=== PATIENT | female | born 1935 | race Caucasian/White ===

== ENCOUNTER 2018-10-02 05:00 | Inpatient (IN) | payer OTHER, MEDICAID ==
[~2018-10-02] VITALS: Ht 154.9 cm; Wt 82.2 kg
[~2018-10-02 05:00] MED LIST: ACTOS30 PO; ASPIR 8181 MG PO; ASPIRIN ADULT L81 M1 PO; BG MC; CARVEDILOL12.5 M1 PO; CEL100 PO; COLACE100 MG PO; CRESTOR10 M1 PO; CRESTOR10 MG PO; FEROSUL325 MG PO; FOLIC ACID1 MG PO; FUROSEMI PO; FUROSEMIDE20 MG PO; HEP5I SC; HUMULIN R100 U/1 M1 SC; JANUMET1 TAB PO; KLOR-CON M1515 MEQ PO; LACTULOSE10 GM/152 PO; LASIX20 MG PO; LEVEMIR100 U/M1 SC; LOSARTAN POTAS100 MG PO; LOSARTAN POTASS1 TA6 PO; LYRICA100 M1 PO; LYRICA50 MG PO; MACROBID100 MG PO; METFORMIN1000 MG PO; METOPROLOL25 MG PO; MIR125 PO; MIRAPEX0.25 MG PO; NAPROSYN500 MG PO; NAPROXEN500 M2 PO; NOVI SQ; TRAMADOL HCL50 MG PO; TRAMADOL50 MG PO; [UNRECOGNIZED DRUG - OTHER] SQ
[2018-10-02 05:05] VITALS: Ht 154.9 cm; Wt 82.2 kg
[2018-10-02 06:51] LABS: BASOPHIL % 0.4 % (0-2); PLATELET COUNT 273 x10^3mcL (130-400); RED CELL DISTRIBUTION WIDTH 12.5 % (11.5-14.5)
[2018-10-02 07:10] LABS: ALKALINE PHOSPHATASE 110 U/L (46-116); ALT/SGPT 22 U/L (14-59); AST/SGOT 26 U/L (15-37); CALCIUM 9.3 mg/dL (8.5-10.1); CARBON DIOXIDE 23.9 mmol/L (21-32); CHLORIDE SERUM 103 mmol/L (98-107); CREATININE SERUM 1.3 mg/dL (0.6-1.0); POTASSIUM SERUM 3.6 mmol/L (3.5-5.1); SODIUM SERUM 139 mmol/L (136-145); TOTAL PROTEIN, SERUM 7.4 g/dL (6.4-8.2)
[2018-10-02 07:15] LABS: ALBUMIN 3.2 g/dL (3.4-5.0)
[2018-10-02 07:17] LABS: GLUCOSE SERUM 51 mg/dL (74-106)
[2018-10-02] MEDS ORDERED: ELIQUIS2.5 MG PO (07:43)
[2018-10-02] MEDS ORDERED: ZESTRIL5 MG PO (07:46)
[2018-10-02] MEDS ORDERED: LYRICA100 M1 PO (07:47)
[2018-10-02 08:20] LABS: MAGNESIUM 2.1 mg/dL (1.8-2.4)
[2018-10-02 08:21] LABS: CHOLESTEROL/HDL RATIO 2.2
[2018-10-02 08:23] LABS: microscopic required? YES; urine erythrocyte TRACE (NEGATIVE)
[2018-10-02 08:25] LABS: T3 TOTAL 0.97 ng/mL
[2018-10-02 08:28] LABS: FREE T4 1.06 ng/dL (0.76-1.46); FREE THYROXINE INDEX 2.4 ug/dL (1.4-4.5); T4(THYROXINE) 6.8 ug/dL (4.7-13.3)
[2018-10-02 11:18] VITALS: BP 138/75
[2018-10-02 13:07] VITALS: BP 104/82
[2018-10-02 13:40] LABS: AMPHETAMINE QUAL UR NONE DETECTED (See below)
[2018-10-02 16:45] VITALS: BP 103/84
[2018-10-02 21:57] VITALS: BP 112/57
[2018-10-03 05:32] VITALS: BP 98/51
[2018-10-03 07:21] LABS: CALCIUM 8.9 mg/dL (8.5-10.1); CHLORIDE SERUM 104 mmol/L (98-107); CREATININE SERUM 1.3 mg/dL (0.6-1.0); GLUCOSE SERUM 162 mg/dL (74-106); PHOSPHOROUS 3.3 mg/dL (2.5-4.9); POTASSIUM SERUM 3.9 mmol/L (3.5-5.1); SODIUM SERUM 138 mmol/L (136-145)
[2018-10-03 09:05] VITALS: BP 116/49
[2018-10-03 09:51] LABS: BASOPHIL % 0.2 % (0-2); PLATELET COUNT 204 x10^3mcL (130-400); RED CELL DISTRIBUTION WIDTH 13.1 % (11.5-14.5)
[2018-10-03 12:58] VITALS: BP 138/51
[2018-10-03 16:39] VITALS: BP 133/62
[2018-10-03 21:18] VITALS: BP 151/73
[2018-10-04 05:55] VITALS: BP 142/58
[2018-10-04 06:52] LABS: BASOPHIL % 0.3 % (0-2); PLATELET COUNT 241 x10^3mcL (130-400); RED CELL DISTRIBUTION WIDTH 13.4 % (11.5-14.5)
[2018-10-04 07:13] LABS: CALCIUM 8.8 mg/dL (8.5-10.1); CHLORIDE SERUM 106 mmol/L (98-107); CREATININE SERUM 1.2 mg/dL (0.6-1.0); GLUCOSE SERUM 130 mg/dL (74-106); MAGNESIUM 1.7 mg/dL (1.8-2.4); PHOSPHOROUS 3.4 mg/dL (2.5-4.9); SODIUM SERUM 143 mmol/L (136-145)
[2018-10-04 09:38] VITALS: BP 143/67
[2018-10-04] MEDS ORDERED: LEVAQUIN750 MG PO (09:41)
[2018-10-04 12:39] VITALS: BP 143/67
== END 2018-10-04 14:00 | disposition home or self-care (01) | DRG 637 ==
LOC: ED 05:00 → DU 07:28
PROVIDERS: Emergency Medicine; Internal Medicine; ADMIT General Practice
DX: E11.649 Type 2 diabetes mellitus with hypoglycemia without coma (principal); G93.41 Metabolic encephalopathy; E44.1 Mild protein-calorie malnutrition; N39.0 Urinary tract infection, site not specified; I50.42 Chronic combined systolic (congestive) and diastolic (congestive) heart failure; N17.0 Acute kidney failure with tubular necrosis; I11.0 Hypertensive heart disease with heart failure; I48.91 Unspecified atrial fibrillation; E66.9 Obesity, unspecified; M19.90 Unspecified osteoarthritis, unspecified site; Z96.641 Presence of right artificial hip joint; Z96.651 Presence of right artificial knee joint; F03.90 Unspecified dementia, unspecified severity, without behavioral disturbance, psychotic disturbance, mood disturbance, and anxiety; Z79.4 Long term (current) use of insulin; Z68.25 Body mass index [BMI] 25.0-25.9, adult; Z79.01 Long term (current) use of anticoagulants; Z96.41 Presence of insulin pump (external) (internal); Z79.84 Long term (current) use of oral hypoglycemic drugs
CPT/HCPCS: 82962; 83880; 84439; 97116-GP; 97530-GP; G0378; G0480; J0696; J1815; J1956; J3475; J7030; Q0092

== ENCOUNTER 2019-01-29 18:57 | Inpatient (IN) | payer OTHER, MEDICAID ==
[~2019-01-29] VITALS: Ht 170.2 cm; Wt 81.2 kg
[~2019-01-29 18:57] MED LIST changes: +ELIQUIS2.5 MG PO; +LEVAQUIN750 MG PO; +ZESTRIL5 MG PO
[2019-01-29 19:06] VITALS: Ht 170.2 cm; Wt 81.2 kg
[2019-01-29 20:22] LABS: PLATELET COUNT 256 x10^3mcL (130-400); RED CELL DISTRIBUTION WIDTH 14.2 % (11.5-14.5)
[2019-01-29 20:25] LABS: BASOPHIL % 0 % (0-2)
[2019-01-29 20:27] LABS: ALKALINE PHOSPHATASE 134 U/L (46-116); ALT/SGPT 17 U/L (14-59); AST/SGOT 17 U/L (15-37); BILIRUBIN TOTAL 0.34 mg/dL (0.20-1.00); CALCIUM 8.1 mg/dL (8.5-10.1); CARBON DIOXIDE 24.2 mmol/L (21-32); CHLORIDE SERUM 91 mmol/L (98-107); CREATININE SERUM 3.3 mg/dL (0.6-1.0); MAGNESIUM 2.7 mg/dL (1.8-2.4); PHOSPHOROUS 3.9 mg/dL (2.5-4.9); POTASSIUM SERUM 5.1 mmol/L (3.5-5.1); SODIUM SERUM 128 mmol/L (136-145); TOTAL PROTEIN, SERUM 6.6 g/dL (6.4-8.2)
[2019-01-29 20:32] LABS: ALBUMIN 2.8 g/dL (3.4-5.0)
[2019-01-29 20:34] LABS: GLUCOSE SERUM 674 mg/dL (74-106)
[2019-01-29 22:29] LABS: microscopic required? NO
[2019-01-29 22:44] LABS: urine erythrocyte NEGATIVE (NEGATIVE)
[2019-01-29 23:02] LABS: AMPHETAMINE QUAL UR NONE DETECTED (See below)
[2019-01-29 23:41] VITALS: BP 102/55
[2019-01-30] VITALS (8 sets, daily range): BP systolic 94–140; BP diastolic 41–55
[2019-01-30 06:40] LABS: PLATELET COUNT 245 x10^3mcL (130-400); RED CELL DISTRIBUTION WIDTH 14.4 % (11.5-14.5)
[2019-01-30 06:50] LABS: BASOPHIL % 0 % (0-2)
[2019-01-30 06:51] LABS: CALCIUM 7.8 mg/dL (8.5-10.1); CARBON DIOXIDE 26.8 mmol/L (21-32); CHLORIDE SERUM 100 mmol/L (98-107); CREATININE SERUM 2.7 mg/dL (0.6-1.0); GLUCOSE SERUM 301 mg/dL (74-106); MAGNESIUM 2.6 mg/dL (1.8-2.4); PHOSPHOROUS 3.6 mg/dL (2.5-4.9); POTASSIUM SERUM 4.5 mmol/L (3.5-5.1); SODIUM SERUM 135 mmol/L (136-145)
[2019-01-31 04:43] VITALS: BP 105/56
[2019-01-31 06:31] LABS: BASOPHIL % 0.2 % (0-2); PLATELET COUNT 238 x10^3mcL (130-400)
[2019-01-31 06:41] LABS: CALCIUM 8.2 mg/dL (8.5-10.1); CARBON DIOXIDE 25.9 mmol/L (21-32); CHLORIDE SERUM 104 mmol/L (98-107); CREATININE SERUM 1.8 mg/dL (0.6-1.0); GLUCOSE SERUM 212 mg/dL (74-106); MAGNESIUM 2.6 mg/dL (1.8-2.4); PHOSPHOROUS 3.4 mg/dL (2.5-4.9); POTASSIUM SERUM 4.3 mmol/L (3.5-5.1); SODIUM SERUM 139 mmol/L (136-145)
[2019-01-31 07:32] LABS: RED CELL DISTRIBUTION WIDTH 14.8 % (11.5-14.5)
[2019-01-31 09:48] VITALS: BP 130/47
[2019-01-31] MEDS ORDERED: ZITHROMAX500 MG PO (11:48)
[2019-01-31 12:08] VITALS: BP 110/63
[2019-01-31 12:18] VITALS: BP 110/63
== END 2019-01-31 15:30 | disposition home or self-care (01) | DRG 871 ==
LOC: ED 18:57 → DU 21:49
PROVIDERS: Emergency Medicine; General Practice; ADMIT Internal Medicine
DX: A41.9 Sepsis, unspecified organism (principal); J69.0 Pneumonitis due to inhalation of food and vomit; E11.00 Type 2 diabetes mellitus with hyperosmolarity without nonketotic hyperglycemic-hyperosmolar coma (NKHHC); N17.0 Acute kidney failure with tubular necrosis; E44.0 Moderate protein-calorie malnutrition; E87.1 Hypo-osmolality and hyponatremia; E83.41 Hypermagnesemia; E83.51 Hypocalcemia; F03.90 Unspecified dementia, unspecified severity, without behavioral disturbance, psychotic disturbance, mood disturbance, and anxiety; I12.9 Hypertensive chronic kidney disease with stage 1 through stage 4 chronic kidney disease, or unspecified chronic kidney disease; E11.22 Type 2 diabetes mellitus with diabetic chronic kidney disease; N18.9 Chronic kidney disease, unspecified; D63.8 Anemia in other chronic diseases classified elsewhere; E03.9 Hypothyroidism, unspecified; M19.90 Unspecified osteoarthritis, unspecified site; Z96.41 Presence of insulin pump (external) (internal); Z79.4 Long term (current) use of insulin; Z96.651 Presence of right artificial knee joint; Z99.3 Dependence on wheelchair; Z68.30 Body mass index [BMI] 30.0-30.9, adult
CPT/HCPCS: 36600; 82962; 83880; 97116-GP; 97530-GP; G0378; J0456; J0696; J1815; J2543; J7030; J7060; J7620; Q0092